=== PATIENT | female | born 1965 | race Caucasian/White ===

== ENCOUNTER 2024-01-09 22:35 | Inpatient (IN) | payer OTHER ==
[2024-01-10] MEDS ORDERED: Ondansetron PF 4 MG/2 ML Vial IVP PRN (01:25)
[2024-01-10] MEDS ORDERED: hydrALAZINE 20 MG/ML VIAL SLOW IVP PRN (01:25)
[2024-01-10] MEDS ORDERED: Ondansetron ODT 4 MG TAB PO PRN (01:25)
[2024-01-10] MEDS ORDERED: Acetaminophen 650 MG Suppository PR PRN (01:25)
[2024-01-10 04:04] LABS: #Basophils 0.06 10x3/uL (0.0-0.2); %Eosinophils 2.1 % (0.0-10.0); %Lymphocytes 38.9 % (21.0-51.0); %Monocytes 6.9 % (0.0-10.0); %Neutrophils 50.9 % (42.0-75.0); Hematocrit 32.6 % (36.0-47.0); Hemoglobin 11.2 g/dL (12.0-16.0); Mean Corpuscular HGB CONC 34.4 g/dL (32.0-36.0); Mean Corpuscular Hemoglobin 29.6 pg (27.0-31.0); Mean Corpuscular Volume 86.2 fL (78.0-98.0); Mean Platelet Volume 11.2 fL (7.4-10.4); Platelet Count 216 10x3/uL (130-400); Red Blood Cell (RBC) Count 3.78 mill/uL (4.20-5.40)
[2024-01-10 04:30] LABS: Anion Gap 11 mmol/L (10-20); BUN (Urea Nitrogen) 18 mg/dL (9.8-20.1); Calc. Creatinine Clearance 0 mL/min (70-130); Calcium 9.7 mg/dL (7.8-10.44); Carbon Dioxide 28 mmol/L (22-29); Cardiac Risk 3.9 (Less than 4.5); Chloride 103 mmol/L (98-107); Cholesterol 188 mg/dl (< 200 Desired); Estimated GFR 67; Glucose 93 mg/dL (70-105); HDL Cholesterol 48 mg/dL (>60 Neg Risk); LDL Cholesterol, Calculated 119 mg/dL; Potassium 5.4 mmol/L (3.5-5.1); Sodium 137 mmol/L (136-145); Triglycerides 104 mg/dL (Less than 150)
[2024-01-10 06:29] VITALS: BMI 24.3
[2024-01-10] MEDS: Levothyroxine Sodium 112 MCG TAB PO SCH (07:59)
[2024-01-10] MEDS: Levothyroxine Sodium 25 MCG TAB PO SCH (07:59)
[2024-01-10] MEDS ORDERED: Non-Formulary Item 1 EACH (Levothyroxine Sodium [Levothyroxine Sodium] 137 MCG Tablet) PO SCH (09:00)
[2024-01-10 09:09] LABS: Hemoglobin A1c 5.9 % (4.0-6.0)
[2024-01-10] MEDS: Aspirin 81 mg Enteric Coated Tablet PO SCH (09:21)
[2024-01-10] MEDS: Sertraline 100 MG TAB PO SCH (09:21)
[2024-01-10] MEDS: Losartan 25 MG TAB PO SCH (09:22)
[2024-01-10] MEDS: Insulin Regular 300 UNITS/3 ML VIAL IVP SCH (09:26)
[2024-01-10] MEDS: Dextrose 50% Abboject 50 ML SYRINGE SLOW IVP SCH (09:26)
[2024-01-10 09:50] LABS: Cardiac Risk 3.7 (Less than 4.5)
[2024-01-10] MEDS: traZODone HCl 50 MG TAB PO SCH (20:44)
[2024-01-10] MEDS: Acetaminophen 325 MG TAB PO PRN (20:45)
[2024-01-11 04:17] LABS: #Basophils 0.04 10x3/uL (0.0-0.2); %Basophils 0.6 % (0.0-1.0); %Eosinophils 1.9 % (0.0-10.0); %Lymphocytes 33.5 % (21.0-51.0); %Monocytes 8.2 % (0.0-10.0); %Neutrophils 55.5 % (42.0-75.0); Hematocrit 30.6 % (36.0-47.0); Hemoglobin 10.7 g/dL (12.0-16.0); Mean Corpuscular Hemoglobin 30.4 pg (27.0-31.0); Mean Corpuscular Volume 86.9 fL (78.0-98.0); Mean Platelet Volume 11.7 fL (7.4-10.4); Platelet Count 204 10x3/uL (130-400); RBC Distribution Width 13.2 % (11.5-14.5); Red Blood Cell (RBC) Count 3.52 mill/uL (4.20-5.40)
[2024-01-11 04:34] LABS: Anion Gap 12 mmol/L (10-20)
[2024-01-11 04:37] LABS: BUN (Urea Nitrogen) 16 mg/dL (9.8-20.1); Calc. Creatinine Clearance 84 mL/min (70-130); Calcium 9.1 mg/dL (7.8-10.44); Carbon Dioxide 24 mmol/L (22-29); Chloride 102 mmol/L (98-107); Estimated GFR 82; Glucose 108 mg/dL (70-105); Potassium 3.7 mmol/L (3.5-5.1); Sodium 134 mmol/L (136-145)
[2024-01-11 12:55] VITALS: BP 135/77; TEMP 98.1
== END 2024-01-11 14:51 | disposition home or self-care (01) | DRG 93 ==
LOC: 2SE 01-10 00:22 → OBSVTOIN 01-11 09:09
PROVIDERS: ADMIT Student in an Organized Health Care Education/Training Program; ATTEND Internal Medicine
DX: R29.90 Unspecified symptoms and signs involving the nervous system (principal); H81.10 Benign paroxysmal vertigo, unspecified ear; H72.91 Unspecified perforation of tympanic membrane, right ear; I10 Essential (primary) hypertension; E03.9 Hypothyroidism, unspecified; F32.A Depression, unspecified; R26.81 Unsteadiness on feet; M47.812 Spondylosis without myelopathy or radiculopathy, cervical region; M48.02 Spinal stenosis, cervical region; Z88.0 Allergy status to penicillin; Z98.890 Other specified postprocedural states; Z90.49 Acquired absence of other specified parts of digestive tract
CPT/HCPCS: 36415; 36416; 70551; 72141; 80048; 80061; 83036; 85025; 93306; 96374; G0378; J1815; J7999